=== PATIENT | male | born 1995 | race Caucasian/White ===

== ENCOUNTER 2018-09-21 18:01 | Emergency (ER) | payer SELFPAY ==
[~2018-09-21] VITALS: Ht 172.7 cm; Wt 85.3 kg
[2018-09-21 18:04] VITALS: Ht 172.7 cm; Wt 85.3 kg
[2018-09-21 21:05] VITALS: BP 122/75
== END 2018-09-21 21:05 | disposition home or self-care (01) ==
LOC: ED 18:01
DX: S86.912A Strain of unspecified muscle(s) and tendon(s) at lower leg level, left leg, initial encounter (principal); S86.911A Strain of unspecified muscle(s) and tendon(s) at lower leg level, right leg, initial encounter; X50.0XXA Overexertion from strenuous movement or load, initial encounter; Y93.89 Activity, other specified; Y92.89 Other specified places as the place of occurrence of the external cause; Y99.8 Other external cause status